=== PATIENT | male | born 1945 | race Caucasian/White ===

== ENCOUNTER 2019-10-08 12:43 | Emergency (ER) | payer BC, OTHER ==
--- NOTE | 2019-10-08 13:18 | ERPHSYRPT ---
- History of Present Illness Time Seen by Provider: 10/08/19 13:00 Source: patient Exam Limitations: no limitations Patient Subjective Stated Complaint: Pt states "had pain in lower left side Fri and Sat had aleve. Sat raheem started hurting alot. Walked a lot Sat" Triage Nursing Assessment: C/o pain left hip. Pain "moves" radiates lower back to upper leg. Trouble moving/walking/sitting. Physician History: 74 years old male with history of osteoarthritis/multiple joint surgeries in the past presented in the ER with left hip pain for the last 2 to 3 days with progressive worsening. He was seen at the primary care office yesterday with a Kenalog shot but woke up this morning, was having severe pain difficulty ambulation which is much improved now and currently pain is minimal. Denies any fall or trauma. No limitation of movements of left hip. No swelling. No difficulty ambulation at present. Method of Injury: unknown Occurred: days ago (2) Quality: sharpness Severity of Pain-Max: moderate Severity of Pain-Current: mild Lower Extremities Pain: hip: left Associated Symptoms: No unable to bear weight Home Medications: Aspirin EC 81 mg [Ecotrin 81 mg] 81 mg PO CLARIFY 10/08/19 [History] Benazepril/Hydrochlorothiazide [Benazepril-Hctz 20-12.5 mg Tab] 1 tab PO DAILY 10/08/19 [History] Cholecalciferol (Vitamin D3) [Vitamin D3] 25 mcg PO DAILY 10/08/19 [History] Cyclobenzaprine HCl [Flexeril] 5 mg PO TIDPRN 10/08/19 [History] Rosuvastatin Calcium [Crestor] 10 mg PO DAILY 10/08/19 [History] gemfibroziL [Gemfibrozil] 300 mg PO BID 10/08/19 [History] Hx Tetanus, Diphtheria Vaccination/Date Given: Yes Hx Influenza Vaccination/Date Given: Yes Hx Pneumococcal Vaccination/Date Given: Yes Immunizations Up to Date: Yes Travel Risk - International Travel Have you traveled outside of the country in past 3 weeks: No - Coronavirus Screening Are you exhibiting any of the following symptoms?: No Close contact with a COVID-19 positive Pt in past 14-21 Days: No - Review of Systems Constitutional: No Symptoms Eyes: No Symptoms Ears, Nose, & Throat: No Symptoms Respiratory: No Symptoms Cardiac: No Symptoms Abdominal/Gastrointestinal: No Symptoms Musculoskeletal: Arthralgias, Joint Pain Neurological: No Symptoms Psychological: No Symptoms Endocrine: No Symptoms Hematologic/Lymphatic: No Symptoms Immunological/Allergic: No Symptoms - Past Medical History Neurological History: No Pertinent History ENT History: Cataracts Cardiac History: High Cholesterol, Hypertension Respiratory History: No Pertinent History Endocrine Medical History: No Pertinent History Musculoskeletal History: Arthritis - Past Surgical History Past Surgical History: Yes - Social History Smoking Status: Former smoker Exposure to second hand smoke: No Drug Use: none Patient Lives Alone: No - Nursing Vital Signs Nursing Vital Signs: Initial Vital Signs Temperature 98.7 F 10/08/19 12:50 Pulse Rate 75 10/08/19 12:50 Respiratory Rate 20 10/08/19 12:50 Blood Pressure 165/80 10/08/19 12:50 O2 Sat by Pulse Oximetry 98 10/08/19 12:50 Pain Scale Pain Intensity 6 - Physical Exam General Appearance: no apparent distress, alert Eyes, Ears, Nose, Throat Exam: normal ENT inspection Neck Exam: normal inspection, supple, full range of motion Cardiovascular/Respiratory Exam: chest non-tender, normal breath sounds, regular rate/rhythm Gastrointestinal/Abdominal Exam: non-tender, soft Back Exam: normal inspection Hips Exam: left: pain, other (No limb shortening or external rotation. Distal neurovascular well intact.), bilateral: non-tender, normal inspection, normal range of motion, no evidence of injury, bone tenderness Legs Exam: bilateral leg: non-tender, normal inspection, normal range of motion, no evidence of injury Knees Exam: bilateral knee: non-tender Ankle Exam: bilateral ankle: non-tender Foot Exam: bilateral foot: non-tender Neuro/Tendon Exam: normal sensation, normal motor functions, normal tendon functions Mental Status Exam: alert, oriented x 3, cooperative Skin Exam: normal color SpO2 Interpretation: normal SpO2: 98 O2 Delivery: Room Air - Course Nursing assessment & vital signs reviewed: Yes Ordered Tests: Active Orders 24 hr Category Date Time Status HIP UNI (2V) INCL PEL IF DONE Stat Exams 10/08/19 13:31 Completed - Progress Progress: pain not gone completely Progress Note: 10/08/19 14:05 Patient refused. Currently patient pain is very well controlled. I have obtained x-rays which did not show any acute fracture dislocation. I believe patient has worsening osteoarthritis. Recommended taking Tylenol as needed and follow-up outpatient with Ortho clinic. Discussed signs symptoms of worsening needing return to ER which he seems understanding. Counseled pt/family regarding: diagnosis, need for follow-up, rad results - Departure Departure Disposition: Home Clinical Impression: Acute pain of left hip Condition: Stable Critical Care Time: No Referrals: ANTHONY PIERCE STRAW BALER [Primary Care Provider] - Follow Up with PCP/3 days VALDEMAR LOWE NP [NON-STAFF PHY W/O PRIVILEGES] - (Tomorrow for reevaluation) Instructions: Hip Pain in Older People Additional Instructions: Take Tylenol as needed. Use cane for ambulation to avoid a fall. Follow-up with primary care and Ortho clinic for reevaluation. Return to ER for any worsening.
--- NOTE | 2019-10-08 14:00 | XRAY ---
Indication: Pain 4 days. No known injury. Comparison: None 2 view left hip demonstrates large non-expansile proximal femur bone cyst grossly unchanged with respect to CT abdomen/pelvis May 28, 2013. No other bony, articular, or soft tissue abnormalities.
[2019-10-08 14:15] VITALS: BP 126/68; PULSE 62; O2SAT 97
== END 2019-10-08 14:38 | disposition home or self-care (01) ==
LOC: ED 12:43
DX: M25.552 Pain in left hip (principal); M79.642 Pain in left hand; M19.90 Unspecified osteoarthritis, unspecified site; I10 Essential (primary) hypertension; E78.00 Pure hypercholesterolemia, unspecified
CPT/HCPCS: 73502; 99283

== ENCOUNTER 2020-04-16 22:02 | Emergency (ER) | payer BC ==
[2020-04-16] MEDS ORDERED: BABY ASPIRIN 81 MG CHEW PO ONE (22:03)
--- NOTE | 2020-04-16 22:03 | ERPHSYRPT ---
- History of Present Illness Time Seen by Provider: 04/16/20 22:02 Historian: patient Exam Limitations: no limitations Physician History: This is a 74-year-old white male has a history of elevated cholesterol, hypertension and is a former smoker and presents with approximately 3-week history of intermittent chest pain that is nonradiating and localized in the left anterior chest. His pain is described as a pressure. It he does not have the symptoms during the day it seems to occur only at night and is short-lived, resolving on its own. He did feel some mild shortness of breath today walking up the stairs which was unusual for him. He has not had fevers. He has not had any flulike symptoms. He has no abdominal pain. He has had no nausea vomiting or diarrhea. Patient has no documented coronary artery disease and is not seeing a event staff member. Patient takes a baby aspirin every other day. Timing/Duration: week(s) (A few) Activities at Onset: none Quality: pressure Location: other (Left anterior chest) Chest Pain Radiation: no radiation Severity of Pain-Max: mild Severity of Pain-Current: mild (2-3 out of 10) Modifying Factors: Improves With: nothing Associated Symptoms: shortness of breath (Very mild) Prior Chest Pain/Cardiac Workup: no prior chest pain, no prior cardiac workup Nitro Today/Relief: no nitro taken today Aspirin Treatment Today: no aspirin today Allergies/Adverse Reactions: pentazocine [From Talwin] Allergy (Verified 04/16/20 22:13) States pins and needles sensation meloxicam [From Mobic] Adverse Reaction (Verified 04/16/20 22:13) staes "causes issues with blood pressure" Home Medications: Aspirin EC 81 mg [Ecotrin 81 mg] 81 mg PO CLARIFY 10/08/19 [History] Benazepril/Hydrochlorothiazide [Benazepril-Hctz 20-12.5 mg Tab] 1 tab PO DAILY 10/08/19 [History] Cholecalciferol (Vitamin D3) [Vitamin D3] 25 mcg PO DAILY 10/08/19 [History] Cyclobenzaprine HCl [Flexeril] 5 mg PO TIDPRN 10/08/19 [History] Rosuvastatin Calcium [Crestor] 10 mg PO DAILY 10/08/19 [History] gemfibroziL [Gemfibrozil] 300 mg PO BID 10/08/19 [History] Hx Tetanus, Diphtheria Vaccination/Date Given: Yes Hx Influenza Vaccination/Date Given: Yes Hx Pneumococcal Vaccination/Date Given: Yes Travel Risk - International Travel Have you traveled outside of the country in past 3 weeks: No - Coronavirus Screening Are you exhibiting any of the following symptoms?: No Close contact with a COVID-19 positive Pt in past 14-21 Days: No - Review of Systems Constitutional: No Symptoms Eyes: No Symptoms Ears, Nose, & Throat: No Symptoms Respiratory: No Symptoms Cardiac: Chest Pain Abdominal/Gastrointestinal: No Symptoms Genitourinary Symptoms: No Symptoms Musculoskeletal: No Symptoms Skin: No Symptoms Neurological: No Symptoms Psychological: No Symptoms Endocrine: No Symptoms Hematologic/Lymphatic: No Symptoms Immunological/Allergic: No Symptoms All Other Systems: Reviewed and Negative - Past Medical History Pertinent Past Medical History: Yes Neurological History: No Pertinent History ENT History: Cataracts Cardiac History: High Cholesterol, Hypertension Respiratory History: No Pertinent History Endocrine Medical History: No Pertinent History Musculoskeletal History: Arthritis GI Medical History: No Pertinent History History: No Pertinent History Psycho-Social History: No Pertinent History Male Reproductive Disorders: No Pertinent History - Past Surgical History Past Surgical History: Yes Neuro Surgical History: No Pertinent History Cardiac: No Pertinent History Respiratory: No Pertinent History Gastrointestinal: No Pertinent History Genitourinary: No Pertinent History Musculoskeletal: No Pertinent History Male Surgical History: No Pertinent History - Social History Smoking Status: Former smoker Exposure to second hand smoke: No Drug Use: none Patient Lives Alone: No - Nursing Vital Signs Nursing Vital Signs: Initial Vital Signs Temperature 97.5 F 04/16/20 22:04 Pulse Rate 64 04/16/20 22:04 Respiratory Rate 16 04/16/20 22:04 Blood Pressure 147/80 04/16/20 22:04 O2 Sat by Pulse Oximetry 98 04/16/20 22:04 Pain Scale Pain Intensity 0 - Physical Exam General Appearance: no apparent distress, alert, anxiety Eye Exam: PERRL/EOMI, eyes nml inspection Ears, Nose, Throat Exam: normal ENT inspection, moist mucous membranes Neck Exam: normal inspection, non-tender, supple, full range of motion Respiratory Exam: normal breath sounds, chest tenderness, lungs clear, No respiratory distress, No airway intact Cardiovascular Exam: regular rate/rhythm, normal heart sounds, normal peripheral pulses Gastrointestinal/Abdomen Exam: soft, normal bowel sounds, No tenderness Rectal Exam: not done Back Exam: normal inspection, normal range of motion, No CVA tenderness, No vertebral tenderness Extremity Exam: normal inspection, normal range of motion, pelvis stable Neurologic Exam: alert, oriented x 3, cooperative, cop breaker II-XII nml as tested, normal mood/affect, nml cerebellar function, nml station & gait, sensation nml Skin Exam: normal color, warm, dry Lymphatic Exam: No adenopathy SpO2 Interpretation: normal O2 Delivery: Room Air - Course Nursing assessment & vital signs reviewed: Yes EKG Interpreted by Me: RATE (64), Sinus Rhythm, NORMAL AXIS, NORMAL QRS, Other (Prolonged TX interval. Possible right bundle branch block. No comparison EKG. There is no acute ischemic changes on this EKG.) Ordered Tests: Active Orders 24 hr Category Date Time Status [employer] STAT Care 04/16/20 22:03 Active EKG-ER Only STAT Care 04/16/20 22:03 Active IV Insertion STAT Care 04/16/20 22:03 Active Pulse Oximetry (ED) STAT Care 04/16/20 22:03 Active CHEST 1 VIEW (PORTABLE) Stat Exams 04/16/20 22:03 Taken CHEST WITH CONTRAST [CT] Stat Exams 04/16/20 23:09 Taken CBC W DIFF Stat Lab 04/16/20 22:25 Completed CMP Stat Lab 04/16/20 22:25 Completed D-DIMER QUANTITATIVE Stat Lab 04/16/20 22:25 Completed NT PRO BNP Stat Lab 04/16/20 22:25 Completed T4 (Thyroxine) Stat Lab 04/16/20 Completed TROPONIN Q3H Lab 04/16/20 22:25 Completed TROPONIN Q3H Lab 04/17/20 01:15 Ordered TROPONIN Q3H Lab 04/17/20 04:15 Ordered TROPONIN Q3H Lab 04/17/20 07:15 Ordered TROPONIN Q3H Lab 04/17/20 10:15 Ordered TSH [TSH, 3RD Generation] Stat Lab 04/16/20 22:31 Completed Medication Summary Discontinued Medications Generic Name Dose Route Start Last Admin Trade Name Freq PRN Reason Stop Dose Admin Aspirin 324 mg 04/16/20 22:03 04/16/20 22:29 Baby Aspirin 81 Mg Chew PO 04/16/20 22:04 324 mg STAT ONE Administration Aspirin Confirm 04/16/20 22:25 Baby Aspirin 81 Mg Chew Administered 04/16/20 22:26 Dose 324 mg .ROUTE .STK-MED ONE Sodium Chloride 500 mls @ 500 mls/hr 04/16/20 23:09 04/16/20 23:38 Sodium Chloride 0.9% 500 Ml IV 04/17/20 00:08 500 mls/hr .Q1H ONE Administration Sodium Chloride Confirm 04/16/20 23:35 Sodium Chloride 0.9% 500 Ml Administered 04/16/20 23:36 Dose 500 mls @ ud IV .STK-MED ONE Lab/Rad Data: Laboratory Result Diagrams 04/16/20 22:25 04/16/20 22:25 Laboratory Results 04/16/20 04/16/20 04/16/20 Range/Units Unknown 22:31 22:25 WBC (4.0-10.5) K/mm3 RBC (4.1-5.6) M/mm3 Hgb (12.5-18.0) gm/dl Hct (42-50) % MCV (78-100) fl MCH (26-32) pg MCHC (32-36) g/dl RDW (11.5-14.0) % Plt Count (150-450) K/mm3 MPV (7.5-11.0) fl Gran % (36.0-66.0) % Eos # (Auto) (0-0.5) Absolute Lymphs (auto) (1.0-4.6) Absolute Monos (auto) (0.0-1.3) Lymphocytes % (24.0-44.0) % Monocytes % (0.0-12.0) % Eosinophils % (0.00-5.0) % Basophils % (0.0-0.4) % Absolute Granulocytes (1.4-6.9) Basophils # (0-0.4) D-Dimer (215-500) ng/mL Sodium (137-145) mmol/L Potassium (3.5-5.1) mmol/L Chloride (98-107) mmol/L Carbon Dioxide (22-30) mmol/L Anion Gap (5-15) MEQ/L BUN (9-20) mg/dL Creatinine (0.66-1.25) mg/dL Estimated GFR ML/MIN Glucose (74-106) mg/dL Calcium (8.4-10.2) mg/dL Total Bilirubin (0.2-1.3) mg/dL AST (17-59) U/L ALT (0-50) U/L Alkaline Phosphatase (38-126) U/L Troponin I < 0.012 (0.000-0.034) ng/mL NT-Pro-B Natriuret Pep (0-900) pg/mL Serum Total Protein (6.3-8.2) g/dL Albumin (3.5-5.0) g/dL Thyroxine (T4) 9.66 (5.53-10.96) ug/dL TSH 3rd Generation 2.200 (0.47-4.68) mIU/L 04/16/20 04/16/20 04/16/20 Range/Units 22:25 22:25 22:25 WBC 6.7 (4.0-10.5) K/mm3 RBC 5.08 (4.1-5.6) M/mm3 Hgb 15.6 (12.5-18.0) gm/dl Hct 48.0 (42-50) % MCV 94.5 (78-100) fl MCH 30.7 (26-32) pg MCHC 32.5 (32-36) g/dl RDW 13.0 (11.5-14.0) % Plt Count 203 (150-450) K/mm3 MPV 12.0 H (7.5-11.0) fl Gran % 43.5 (36.0-66.0) % Eos # (Auto) 0.11 (0-0.5) Absolute Lymphs (auto) 2.95 (1.0-4.6) Absolute Monos (auto) 0.74 (0.0-1.3) Lymphocytes % 43.8 (24.0-44.0) % Monocytes % 11.0 (0.0-12.0) % Eosinophils % 1.6 (0.00-5.0) % Basophils % 0.1 (0.0-0.4) % Absolute Granulocytes 2.92 (1.4-6.9) Basophils # 0.01 (0-0.4) D-Dimer 728 H* (215-500) ng/mL Sodium 139 (137-145) mmol/L Potassium 3.7 (3.5-5.1) mmol/L Chloride 103 (98-107) mmol/L Carbon Dioxide 29 (22-30) mmol/L Anion Gap 10.9 (5-15) MEQ/L BUN 22 H (9-20) mg/dL Creatinine 0.79 (0.66-1.25) mg/dL Estimated GFR > 60.0 ML/MIN Glucose 157 H (74-106) mg/dL Calcium 9.4 (8.4-10.2) mg/dL Total Bilirubin 0.50 (0.2-1.3) mg/dL AST 22 (17-59) U/L ALT 18 (0-50) U/L Alkaline Phosphatase 56 (38-126) U/L Troponin I (0.000-0.034) ng/mL NT-Pro-B Natriuret Pep 36.9 (0-900) pg/mL Serum Total Protein 6.8 (6.3-8.2) g/dL Albumin 4.0 (3.5-5.0) g/dL Thyroxine (T4) (5.53-10.96) ug/dL TSH 3rd Generation (0.47-4.68) mIU/L - Progress Progress: improved, re-examined Air Movement: good Progress Note: 04/16/20 22:51 Chest x-ray shows no acute cardiopulmonary process 04/17/20 00:57 CAT scan of the chest with contrast shows no evidence of any pulmonary emboli or acute cardiopulmonary process Blood Culture(s) Obtained: No Antibiotics given: No Counseled pt/family regarding: lab results, diagnosis, need for follow-up, rad results - Departure Departure Disposition: Home Clinical Impression: Chest pain Condition: Stable Critical Care Time: No Referrals: MIKE OLIVA [Primary Care Provider] - Additional Instructions: Take your medications as prescribed. Follow-up with your primary care doctor for further management including a cardiac stress test, echocardiogram or possible referral to event staff member if indicated.
[2020-04-16] MEDS ORDERED: BABY ASPIRIN 81 MG CHEW ONE (22:25)
[2020-04-16 22:27] LABS: Absolute Neutrophil Ct (ANC) 2.92 (1.4-6.9); BASOPHIL % 0.1 % (0.0-0.4); Basophil (Absolute #) 0.01 (0-0.4); Eosinophil % 1.6 % (0.00-5.0); Eosinophil (Absolute #) 0.11 (0-0.5); Hemoglobin 15.6 gm/dl (12.5-18.0); Lymphocyte (Absolute #) 2.95 (1.0-4.6); Lymphocytes % 43.8 % (24.0-44.0); Mean Cell Volume 94.5 fl (78-100); Mean Corpuscular Hemoglobin 30.7 pg (26-32); Mean Corpuscular Hgb Concent. 32.5 g/dl (32-36); Monocyte (Absolute #) 0.74 (0.0-1.3); Neutrophil % 43.5 % (36.0-66.0); Platelet Count 203 K/mm3 (150-450); Red Blood Count 5.08 M/mm3 (4.1-5.6); White Blood Count 6.7 K/mm3 (4.0-10.5)
[2020-04-16 22:47] LABS: ALKALINE PHOSPHATASE 56 U/L (38-126); ANION GAP 10.9 MEQ/L (5-15); BLOOD UREA NITROGEN 22 mg/dL (9-20); CHLORIDE 103 mmol/L (98-107); Calcium 9.4 mg/dL (8.4-10.2); Carbon Dioxide 29 mmol/L (22-30); Creatinine 1 0.79 mg/dL (0.66-1.25); EST GLOMERULAR FILTRATION RATE > 60.0 ML/MIN; Glucose 157 mg/dL (74-106); NT PRO BNP 36.9 pg/mL (0-900); Potassium 3.7 mmol/L (3.5-5.1); SGOT/AST 22 U/L (17-59); SGPT/ALT 18 U/L (0-50); SODIUM 139 mmol/L (137-145); Total Protein 6.8 g/dL (6.3-8.2)
[2020-04-16] MEDS ORDERED: Sodium Chloride 0.9% 500 ML 500 ML IV ONE ×2 (23:09→23:35)
[2020-04-17 01:09] VITALS: BP 113/66; PULSE 76; O2SAT 98
--- NOTE | 2020-04-17 08:46 | XRAY ---
Indication: Chest pain. Short of breath. Elevated d-dimer. Multiple contiguous axial images obtained through the chest using 80 cc Isovue 370 contrast and PE protocol. Comparison: None. There is good opacification of the pulmonary arteries to include the lobar and segmental branches. No pulmonary embolus. Heart is not enlarged. Aorta is normal in course and caliber. Small mediastinal and bilateral hilar calcified nodes. No pathologic mediastinal/hilar lymphadenopathy. Small hiatal hernia. Lungs inflated with minimal bilateral dependent atelectasis. No suspicious pulmonary mass, infiltrate, consolidation, or effusion. Bony thorax intact with mild degenerative changes throughout the spine. Limited upper abdomen demonstrates fatty liver and bilateral renal cysts, largest left midpole measuring 3.7 cm. Impression: 1. Negative pulmonary embolus. No acute cardiopulmonary findings. 2. Incidental small hiatal hernia, fatty liver, bilateral renal cysts, old granulomatous disease, and chronic bony findings. Comment: Preliminary interpretation was made by [facility]. No critical discrepancy.
--- NOTE | 2020-04-17 08:46 | XRAY ---
Indication: Chest pain. Comparison: None Portable chest demonstrates normal heart and lungs with incidental calcified granulomas. Bony thorax intact with mild degenerative changes.
== END 2020-04-17 01:15 | disposition home or self-care (01) ==
LOC: ED 22:02
DX: R07.89 Other chest pain (principal); E78.00 Pure hypercholesterolemia, unspecified; I10 Essential (primary) hypertension; R06.02 Shortness of breath; Z79.899 Other long term (current) drug therapy
CPT/HCPCS: 36000; 36415; 71045; 71260; 80053; 83880; 84436; 84443; 84484; 85025; 85379; 93005; 93041; 94760; 99284; A9270-GY

== ENCOUNTER 2023-09-10 17:24 | Emergency (ER) | payer BC ==
[2023-09-10 18:03] VITALS: TEMP 98.1
--- NOTE | 2023-09-10 18:38 | ERPHSYRPT ---
- History of Present Illness Time Seen by Provider: 09/10/23 18:21 Source: patient Exam Limitations: no limitations Patient Subjective Stated Complaint: Right lawrence pain Triage Nursing Assessment: Patient brought back to ED per w/c and transferred s elf to bed. Patient A+O x3. Patient's skin pink, warm and dry. Patient complains of right lower leg (lawrence) pain since July 27. Patient has been seen 6 times since. Patient states he has had an xray and ultrasound to right lower leg. Patient states the pain is worse today and he is using a cane. Patient is crying in pain and states pain is 10/10. No visible injuries noted. Physician History: Pt c/o right leg pain since 07/28/23 with no Hx trauma. Pt does not want labs but will allow an ultrasound and CT-scan of the right leg. Pt states the pain is severe; denies fever, vomiting, chest pain, shortness of air. Allergies/Adverse Reactions: pentazocine [From Talwin] Allergy (Verified 09/10/23 17:55) States pins and needles sensation meloxicam [From Mobic] Adverse Reaction (Verified 09/10/23 17:55) staes "causes issues with blood pressure" Home Medications: Aspirin EC 81 mg [Ecotrin 81 mg] 81 mg PO CLARIFY 10/08/19 [History] Benazepril/Hydrochlorothiazide [Benazepril-Hctz 20-12.5 mg Tab] 1 tab PO DAILY 10/08/19 [History] Cholecalciferol (Vitamin D3) [Vitamin D3] 25 mcg PO DAILY 10/08/19 [History] Cyclobenzaprine HCl [Flexeril] 5 mg PO TIDPRN 10/08/19 [History] Rosuvastatin Calcium [Crestor] 10 mg PO DAILY 10/08/19 [History] gemfibroziL [Gemfibrozil] 300 mg PO BID 10/08/19 [History] Hx Tetanus, Diphtheria Vaccination/Date Given: Yes Hx Influenza Vaccination/Date Given: Yes Hx Pneumococcal Vaccination/Date Given: Yes Immunizations Up to Date: Yes Travel Risk - International Travel Have you traveled outside of the country in past 3 weeks: No - Emerging Infectious Disease Are you exhibiting symptoms associated with any current EIDs: No - Review of Systems Constitutional: No Fever Respiratory: No Dyspnea Cardiac: No Chest Pain Abdominal/Gastrointestinal: No Abdominal Pain, No Vomiting Genitourinary Symptoms: No Dysuria Musculoskeletal: Other (right leg pain) Skin: No Rash Neurological: No Headache - Past Medical History Pertinent Past Medical History: Yes Neurological History: No Pertinent History ENT History: Cataracts Cardiac History: High Cholesterol, Hypertension Respiratory History: No Pertinent History Endocrine Medical History: No Pertinent History Musculoskeletal History: Arthritis GI Medical History: No Pertinent History History: No Pertinent History Psycho-Social History: No Pertinent History Male Reproductive Disorders: No Pertinent History - Past Surgical History Past Surgical History: Yes Neuro Surgical History: No Pertinent History Cardiac: No Pertinent History Respiratory: No Pertinent History Gastrointestinal: No Pertinent History Genitourinary: No Pertinent History Musculoskeletal: No Pertinent History Male Surgical History: No Pertinent History - Social History Smoking Status: Former smoker Exposure to second hand smoke: No Drug Use: none Patient Lives Alone: No - Social Determinants of Health Will the patient participate in the screening: Yes Do you worry about a steady place to live?: No Do you have any problems with any of the following?: No known problems In the past 12 months,have you had to go without utilities?: No Transportation Issues: No Has anyone in your support network made you feel unsafe?: No Have you or anyone in your house had to go without enough: No - Nursing Vital Signs Nursing Vital Signs: Initial Vital Signs Temperature 98.1 F 09/10/23 17:56 Pulse Rate 83 09/10/23 17:56 Respiratory Rate 20 09/10/23 17:56 Blood Pressure 181/149 09/10/23 17:56 O2 Sat by Pulse Oximetry 96 09/10/23 17:56 Pain Scale Pain Intensity 7 - Physical Exam General Appearance: alert Eyes, Ears, Nose, Throat Exam: TMs normal, pharynx normal, moist mucous membranes Neck Exam: normal inspection Cardiovascular/Respiratory Exam: normal breath sounds, heart sounds normal Gastrointestinal/Abdominal Exam: soft (B.S. normal) Hips Exam: bilateral: normal range of motion Legs Exam: right leg: other (non-tender), bilateral leg: normal range of motion Knees Exam: bilateral knee: normal range of motion Ankle Exam: bilateral ankle: normal range of motion Foot Exam: bilateral foot: normal range of motion Neuro/Tendon Exam: normal sensation, normal motor functions Mental Status Exam: alert, cooperative Skin Exam: warm, dry SpO2 Interpretation: normal SpO2: 96 O2 Delivery: Room Air Ordered Tests: Active Orders 24 hr Category Date Time Status LOWER EXTREMITY WO CONTRAST [CT] Stat Exams 09/10/23 18:35 Taken VENOUS UNILAT/LIMITED EXTREMIT [US] Stat Exams 09/10/23 18:36 Ordered Medication Summary Discontinued Medications Generic Name Dose Route Start Last Admin Trade Name [place] PRN Reason Stop Dose Admin Hydromorphone HCl 1 mg 09/10/23 18:39 09/10/23 18:44 Hydromorphone 1 Mg/1ml Inj IM 09/10/23 18:40 1 mg STAT ONE Administration Hydromorphone HCl Confirm 09/10/23 18:43 Hydromorphone 1 Mg/1ml Inj Administered 09/10/23 18:44 Dose 1 mg .ROUTE .STK-MED ONE Ondansetron HCl 4 mg 09/10/23 18:40 09/10/23 18:44 Zofran 4 Mg/Udtablet Orally Disintegrating PO 09/10/23 18:41 4 mg STAT ONE Administration Ondansetron HCl Confirm 09/10/23 18:43 Zofran 4 Mg/Udtablet Orally Disintegrating Administered 09/10/23 18:44 Dose 4 mg .ROUTE .STK-MED ONE - Departure Departure Disposition: Home Clinical Impression: Right leg pain Condition: Stable Critical Care Time: No Referrals: MIKE OLIVA [Primary Care Provider] - Follow up/PCP as directed
[2023-09-10] MEDS ORDERED: Hydromorphone 1 mg/ml Injection ONE ×2 (18:43→21:50)
[2023-09-10] MEDS ORDERED: ZOFRAN ODT 4 MG ONE (18:43)
[2023-09-10] MEDS: Hydromorphone 1 mg/ml Injection IM ONE ×2 (18:44→21:53)
[2023-09-10] MEDS: ZOFRAN ODT 4 MG PO ONE (18:44)
--- NOTE | 2023-09-10 19:59 | XRAY ---
CLINICAL HISTORY: right lower leg pain since 07/28/23 COMPARISON: None TECHNIQUE: Thin axial images of the right lower leg were obtained along with coronal and sagittal reconstructions. 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 Mild suprapatellar effusion is seen. The visualized bones appear normal. The joint spaces are normal. The tibiofemoral and superior tibiofibular joint spaces are normal. No evidence of lytic or sclerotic bone lesion. IMPRESSION: A well-corticated small fragments inferior to lateral malleolus, may represent a sequela of old injury. Mild suprapatellar effusion. Electronically Signed by: Yasmeen Velez MD. (09/10/2023 19:54:22 EDT)
[2023-09-10 22:03] VITALS: BP 129/80; PULSE 74; RESP 19; O2SAT 93
--- NOTE | 2023-09-11 08:37 | XRAY ---
Indication: Pain. Two-dimensional sonogram and color Doppler imaging major venous vessels right leg performed. Comparison: August 08, 2023 No thrombus seen in the examined deep venous vessels right leg including greater saphenous vein. Veins demonstrate normal compressibility. Venous waveforms are normal with and without augmentation. Impression: Right leg continues to be negative for DVT. Comment: Preliminary report was given.
== END 2023-09-10 22:30 | disposition home or self-care (01) ==
LOC: ED 17:24
DX: M79.604 Pain in right leg (principal); E78.5 Hyperlipidemia, unspecified; I10 Essential (primary) hypertension; Z79.899 Other long term (current) drug therapy
CPT/HCPCS: 73700; 93971; 96372; 99284; J1170; Q0162

== ENCOUNTER 2024-07-22 10:20 | Day surgery (SDC) | payer BC, OTHER ==
[2024-07-22] MEDS ORDERED: Lactated Ringers 1,000 ML IV SCH (10:30)
[2024-07-22 10:45] LABS: Absolute Neutrophil Ct (ANC) 3.37 x10^3/uL (1.78-5.38); BASOPHIL % 0.5 % (0.2-1.2); Basophil (Absolute #) 0.03 x10^3/uL (0.01-0.08); Eosinophil (Absolute #) 0.06 x10^3/uL (0.04-0.54); IMMATURE GRAN # 0.02 x10^3u/L (0.001-0.031); IMMATURE GRAN % 0.3 % (0.001-0.429); Lymphocyte (Absolute #) 2.14 x10^3/uL (1.32-3.57); Lymphocytes % 34.8 % (21.8-53.1); Mean Cell Volume 87.9 fL (79.0-92.2); Mean Corpuscular Hemoglobin 29.3 pg (25.7-32.2); Mean Corpuscular Hgb Concent. 33.3 g/dL (32.3-36.5); Mean Platelet Volume 11.3 fL (9.4-12.4); Monocyte (Absolute #) 0.53 x10^3/uL (0.30-0.82); Monocytes % 8.6 % (5.3-12.2); Neutrophil % 54.8 % (34.0-67.9); Platelet Count 231 x10^3/uL (163-337); Red Cell Distribution Width 13.4 % (11.6-14.4); White Blood Count 6.2 x10^3/uL (4.23-9.07)
[2024-07-22 10:59] LABS: ANION GAP 17.9 MEQ/L (5-15); Calcium 9.2 mg/dL (8.4-10.2); Creatinine 1 0.83 mg/dL (0.66-1.25); EST GLOMERULAR FILTRATION RATE 90.1 ML/MIN; Potassium 3.6 mmol/L (3.5-5.1)
[2024-07-22] MEDS ORDERED: Versed 2 MG/2 ML Injection ONE (12:38)
[2024-07-22] MEDS ORDERED: propofoL IV ONE ×3 (12:38→13:08)
[2024-07-22] MEDS ORDERED: Lactated Ringers 1,000 ML IV ONE (12:42)
[2024-07-22] MEDS ORDERED: GlucaGen 1 MG ONE (13:26)
[2024-07-22 13:59] VITALS: RESP 16
[2024-07-22 14:08] VITALS: BP 122/74; PULSE 69; O2SAT 98
[2024-07-22 14:23] VITALS: TEMP 97.9
--- NOTE | 2024-07-24 09:16 | OP ---
SURGERY DATE/TIME: 07/22/2024 [id number] PREOPERATIVE DIAGNOSES: 1) Screening/surveillance. 2) Personal history of polyps, due for surveillance. POSTOPERATIVE DIAGNOSES: 1) Severe diverticulosis. 2) Severe hemorrhoid disease. 3) Multiple polyps. PROCEDURE: Colonoscopy with hot snare polypectomy, cold snare polypectomy, hot forceps polypectomy, and cold forceps polypectomy. SURGEON: Abimbola Reyna MD PLAN: Colonoscopy 3 years. ANESTHESIA: MAC. ESTIMATED BLOOD LOSS: Minimal. COMPLICATIONS: None. SPECIMENS: Hepatic flexure polyps x2, distal descending colon polyp and sigmoid polyp. INDICATIONS: This is a patient who presents for colonoscopy. He has had a history of many polyps in the past. He is not having any acute symptoms. He understands the risks, benefits, and alternatives of colonoscopy. I have seen him in the office as well as on the day of the procedure. His H and P and consent have all been reviewed and confirmed with him. DESCRIPTION OF PROCEDURE AND FINDINGS: He was then brought back to the endoscopy suite, laid in the left lateral decubitus position. A complete time-out was performed. First, we did a rectal inspection and digital exam. He has severe external hemorrhoid disease and also has moderate internal hemorrhoid disease. The scope was then inserted and gently advanced to the level of the cecum. He has extensive diverticulosis. This extends to at least the level of the hepatic flexure and is very severe in the sigmoid and descending colon with multiple pockets in 1 view throughout this region. Once we were at the cecum, I clearly identified the ileocecal valve and the appendiceal orifice. The prep was good. I then carefully withdrew slowly, taking a circumferential view. I did also use glucagon because he did have spasm due to the diverticulosis. We identified multiple polyps. Two polyps were identified in the hepatic flexure, one was about 4 x 5 mm, taken with a hot snare. Another 3 mm polyp was taken with a hot forceps. These 2 polyps were retrieved and sent to Pathology together as hepatic flexure polyps. The third polyp was miniscule, about 1 mm in size, and was completely taken with a cold forceps, tissue not retrieved. This appeared to be very benign. There was a distal descending colon polyp that was about 2 mm taken with cold biopsy forceps, and then a sigmoid polyp, which was semi sessile about 3 mm taken with a cold snare. All polyps were removed in entirety and all were retrieved and sent to Pathology except for the miniscule splenic flexure polyp, which was fully removed and not retrieved. All sites were hemostatic as well. The patient tolerated the procedure very well. There were no immediate complications. I have discussed with his family the preliminary results. Tentative plan for a colonoscopy in 3 years due to multiple polyp history and multiple polyps at this visit, and he will also be following up with me as an outpatient. He understands what to look out for and to call should he have any concerns.
== END 2024-07-22 14:40 | disposition home or self-care (01) ==
LOC: SDC 10:20
PROVIDERS: ATTEND Surgery
DX: Z12.11 Encounter for screening for malignant neoplasm of colon (principal); K57.30 Diverticulosis of large intestine without perforation or abscess without bleeding; D12.3 Benign neoplasm of transverse colon; K63.5 Polyp of colon; I10 Essential (primary) hypertension; E78.5 Hyperlipidemia, unspecified
CPT/HCPCS: 36415; 80048; 85025; 93005; 99100; J1610; J2250; J2704